=== PATIENT | female | born 1995 | race Caucasian/White ===

== ENCOUNTER 2017-05-22 19:18 | Emergency (ER) | payer SELFPAY ==
[2017-05-22 19:20] VITALS: BP 117/67; PULSE 80; RESP 17; TEMP 36; O2SAT 97; BMI 46.0
--- NOTE | 2017-05-22 21:18 | ED.RN ---
deputy hay was in to see patient after she was done talking with the patient. Patient asked to use the restroom. Patient assisted to restroom and was witnessed walking out the of the ER main doors and down the ramp at this time. Friend in the room a this time. Advised friend that she just left. At this time he received a phone call stating she was leaving. Patient given a few minutes to return. Patient never returned at this time. Patient discharged as LWBS at this time. Dr. White who had signed up for patient care made aware at this time.
--- NOTE | 2017-05-22 21:19 | NURSING ---
PT WAS SEEN LEAVING ER WITHOUT NOTIFYING ANY STAFF PERSONNEL AFTER STATING SHE WAS GOING TO THE BATHROOM. SIGNIFICANT OTHER THAT WAS IN THE ROOM WAS NOTIFIED SHE WAS SEEN LEAVING THE BUILDING. HE THEN ALSO LEFT. NOTIFIED. PT D/C LWBS
== END 2017-05-22 21:16 | disposition left against medical advice (07) ==
LOC: ED 21:31
PROVIDERS: Emergency Provider Emergency Medicine
DX: S09.90XA Unspecified injury of head, initial encounter (principal)
CPT/HCPCS: 99282

== ENCOUNTER → 2018-02-12 10:52 | Outpatient (CLI) | payer MEDICARE, SELFPAY ==
--- NOTE | 2018-02-12 11:32 | EKG12_ITS ---
Test Reason : Blood Pressure : / mmHG Vent. Rate : 083 BPM Atrial Rate : 083 BPM P-R Int : 156 ms QRS Dur : 082 ms QT Int : 370 ms P-R-T Axes : 002 065 031 degrees QTc Int : 434 ms Normal sinus rhythm Nonspecific T wave abnormality Abnormal ECG Confirmed by NICK HYDE ([id number]), editor managing newspaper JOJO MOORE ([id number]) on 02/15/2018 2:17:27 PM Referred By: OUT DOCTOR Confirmed By:NICK HYDE
[2018-02-12 11:51] LABS: Absolute Lymphocyte Count 1.14 X10^3/ul (0.83-4.51); Absolute Neutrophil Count 6.2 X10^3/uL (2.0-7.7); Basophil# 0.01 X10^3/uL; Basophil% 0.1 % (0-1); Eosinophil# 0.17 X10^3/uL; Eosinophils% 2.2 % (0-5); Hematocrit 42.7 % (37-47); Hemoglobin 14.4 g/dl (12.0-15.0); Lymphocyte # 1.14 X10^3/ul (4.0); Lymphocyte % 14.5 % (19-41); Mean Corp Hgb Conc 33.7 g/gl (32-36); Mean Corpuscular Hgb 29.6 pg (27.0-32.0); Mean Corpuscular Volume 87.9 fL (81-99); Mean Platelet Vol. 9.6 fl (6.2-12.0); Monocyte# 0.33 X10^3/uL; Monocyte% 4.2 % (0-10); Neutrophil % 78.9 % (47-70); Platelet Count 448 K/mm3 (150-450); RBC Distribution Width CV 14.4 % (11.6-14.6); RBC Distribution Width SD 45.6 fl (35.1-43.9); Red Blood Count 4.86 M/mm3 (4.2-5.4); White Blood Count 7.9 K/mm3 (4.4-11.0)
[2018-02-12 11:53] LABS: POSITIVE COUNT NO; POSITIVE DIFFERENTIAL NO; POSITIVE MORPHOLOGY NO
[2018-02-12 12:29] LABS: ALB/GLOB Ratio 0.8 RATIO (0.9-2.4); AST(SGOT) 31 U/L (15-37); Alanine Aminotransfer ALT/SGPT 43 U/L (13-56); Albumin, Serum 3.6 g/dL (3.2-5.0); Alkaline Phosphatase 150 U/L (45-117); Anion Gap 8 (5-15); BUN 15 mg/dL (7-18); BUN/Creat Ratio 21.7 RATIO (10-20); Calcium,Total 8.7 mg/dL (8.5-10.1); Chloride 112 mmol/L (98-107); Cholesterol 209 mg/dL (200); Creatinine, Serum 0.69 mg/dL (0.55-1.02); EST Glomerular Filtration Rate 111 mL/min (>60); Est Glom Filt Rate - Afr Amer 134 mL/min (>60); Globulin 4.6 g/dL (2.2-4.2); Glucose 90 mg/dL (74-106); High Density Lipoprotein 32 mg/dL; Potassium 4.1 mmol/L (3.5-5.1); Prolactin 12.8 ng/mL; Protein, Total 8.2 g/dL (6.4-8.2); Sodium Level 139 mmol/L (136-145); T3 Total - Triiodothyronine 1.16 ng/mL (0.6-1.81); Thyroid Stim Hormone (TSH) 0.96 uIU/mL (0.358-3.74); Triglycerides 251 mg/dL; Very Low Density Lipoprotein 50 mg/dL (5-40); Vitamin B12 909 pg/mL (211-911); Vitamin D,25 Hydroxy 16.1 ng/mL (29.95-100.01)
== END ==
DX: Z79.899 Other long term (current) drug therapy (principal)
CPT/HCPCS: 80053; 80061; 82248; 82306; 82607; 84146; 84436; 84443; 84480; 85025; 93005

== ENCOUNTER 2020-12-07 13:05 | Emergency (ER) | payer MEDICARE, MEDICAID, SELFPAY ==
[2020-12-07 13:05] VITALS: BP 137/59; PULSE 110; RESP 20; TEMP 36.3; BMI 52.2
[2020-12-07 14:20] LABS: Absolute Lymphocyte Count 2.58 X10^3/uL (0.83-4.51); Absolute Neutrophil Count 4.3 X10^3/uL (2.0-7.7); Basophil# 0.03 X10^3/uL; Basophil% 0.4 % (0-1); Eosinophil# 0.45 X10^3/uL; Eosinophils% 5.7 % (0-5); Hematocrit 45.5 % (37-47); Hemoglobin 14.8 g/dL (12.0-15.0); Lymphocyte # 2.58 X10^3/ul (0.83-4.51); Lymphocyte % 32.8 % (19-41); Mean Corp Hgb Conc 32.5 g/dL (32-36); Mean Corpuscular Hgb 28.1 pg (27.0-32.0); Mean Corpuscular Volume 86.3 fL (81-99); Mean Platelet Vol. 9.4 fl (6.2-12.0); Monocyte# 0.49 X10^3/uL; Monocyte% 6.2 % (0-10); NRBC Flagged by Analyzer 0 % (0-5); Neutrophil # 4.29 X10^3/uL (2.7-7.7); Neutrophil % 54.6 % (47-70); Platelet Count 327 K/mm3 (150-450); RBC Distribution Width CV 14.4 % (11.6-14.6); RBC Distribution Width SD 45.1 fl (35.1-43.9); Red Blood Count 5.27 M/mm3 (4.2-5.4); White Blood Count 7.9 K/mm3 (4.4-11.0)
[2020-12-07 14:28] LABS: Anion Gap 3 (5-15); BUN 15 mg/dL (7-18); BUN/Creat Ratio 19.7 RATIO (10-20); Calcium,Total 9.1 mg/dL (8.5-10.1); Chloride 108 mmol/L (98-107); Creatinine, Serum 0.76 mg/dL (0.55-1.02); EST Glomerular Filtration Rate 97 mL/min (>60); Est Glom Filt Rate - Afr Amer 118 mL/min (>60); Estimated Creatinine Clearance 92.79 ml/min; Glucose 70 mg/dL (74-106); Potassium 3.9 mmol/L (3.5-5.1); Sodium Level 137 mmol/L (136-145)
[2020-12-07 14:36] LABS: Internal QC Validated? YES +Cl - CLEAR BKGD; Pregnancy, Serum, hCG Quali. NEGATIVE Negative
[2020-12-07] MEDS: 0.9% Normal Saline 1,000 ML 125 ML IV (14:41)
[2020-12-07] MEDS: Mag Hydrox/Al Hydrox/Simeth 30 ML UDC PO (14:41)
[2020-12-07] MEDS: Ondansetron 4 MG/2 ML Vial IV (14:41)
--- NOTE | 2020-12-07 15:10 | EDS_ITS ---
HPI HPI - GI History of Present Illness Chief Complaint: Abd Pain Informant: patient Abdominal Pain/Flank Pain Onset: Hours Context: Sudden Onset Timing: Continuous Quality: Burning Location: RUQ and RLQ Current Severity: Mild Maximum Severity: Moderate Worsened by: Nothing Relieved by: Nothing Nausea/Vomiting/Emesis GI Symptom: Positive for Nausea and Vomiting Onset: Today Quality: Negative for Blood streaks, Coffee ground and Hematemesis Severity: Mild Diarrhea/Melena/Hematochezia GI Symptom: Positive for Melena; Negative for Diarrhea and Hematochezia Onset: Today Associated Symptoms Associated Symptoms: Negative for Dysuria, Frequency and Hematuria LMP: A couple of weeks ago. Narrative Narrative: Patient is a 25-year-old woman who presents with burning right-sided abdominal pain. She is status post cholecystectomy. She has history of peptic ulcer disease. She states she has tarry dark stool. She states she took an aspirin and the pain was alleviated she went to bed. She denies dysuria, tiny quency, urgency or hematuria. She denies history of renal ureterolithiasis. She denies vaginal bleeding. She had a recent miscarriage/ectopic . She denies fever, chills night sweats. She denies ocular, visual auditory symptoms. She denies chest pain. She denies shortness of breath. She denies urinary symptoms. She denies rash. She denies neurologic symptoms. Prior similar symptoms: Yes (Peptic ulcer disease) Recent Illness/Hospitalization: No PFSH PFSH Medical History (Updated 12/07/20 @ 16:[address] Robert Lopez MD) Bipolar disorder Depression Depression GERD (gastroesophageal reflux disease) Peptic ulcer disease Schizo-affective schizophrenia Home Medications topiramate [Topamax] 25 mg PO BID 05/22/17 [History Last Taken Unknown] ondansetron 4 mg PO Q8H PRN PRN #10 tab 12/07/20 [Rx Last Taken Unknown] Allergy/AdvReac Type Severity Reaction Status Date / Time aspirin Allergy Swelling Verified 05/22/17 19:20 Social History (Updated 12/07/20 @ 15:[address] Robert Lopez MD) household members: none Smoking Status: Current every day smoker tobacco type: cigarettes alcohol intake: never substance use type: does not use ROS ROS ED Constitutional Constitutional ED: Denies chills, fever(s) or subjective ENT ENT ED: Denies ear pain, rhinorrhea or sore throat Cardiovascular Cardiovascular: Denies chest pain, orthopnea, palpitations, paroxysmal nocturnal dyspnea or racing heartbeat Respiratory/Chest Respiratory/Chest: Denies cough, dyspnea, dyspnea on exertion, orthopnea or paroxysmal nocturnal dyspnea Gastrointestinal Gastrointestinal: Reports abdominal pain, melena, nausea and vomiting; Denies constipation or diarrhea Genitourinary Genitourinary ED: Denies dysuria, hematuria or urinary frequency Musculoskeletal Musculoskeletal: Denies arthralgias, back pain, myalgias or neck pain Integumentary Denies rash Neurologic Neurologic: Denies headache(s) or weakness Endocrine Endocrinology: Denies polydipsia, polyphagia or polyuria Hematologic/Lymphatic Hematologic/Lymphatic: Denies easy bleeding or easy bruising Allergic/Immunologic Allergic/Immunologic ED: Denies urticaria EXAM Physical Exam Const Vital Signs: 12/07/20 13:05 Temperature 97.3 F L Temperature Source Temporal Pulse Rate 110 H Respiratory Rate 20 H Blood Pressure 137/59 H Blood Pressure Mean 85 Positive well nourished, well developed and obese General Appearance ED: well developed and NAD; Negative for pallor Nutritional Appearance: obese HEENT Reports TM's clear and moist mucous membranes normocephalic and atraumatic Tympanic Membrane ED: Yes TM's clear Eyes PERRL and EOMs intact bilaterally General Eye ED: Negative for pale conjunctiva or scleral icterus Neck no lymphadenopathy, supple and no JVD Resp normal respiratory effort and clear to auscultation bilaterally Cardio regular rate, regular rhythm, S1 normal heart sound, S2 normal heart sound and no murmurs GI non-tender, non-distended and no masses Auscultation: normoactive bowel sounds Palpation: soft Back/Spine no CVA tenderness General Back: Negative for CVA tenderness Cervical Spine: Negative for cervical spine tenderness Thoracic Spine / Upper Back: Negative for thoracic spinal tenderness Lumbar Spine / Lower Back: Negative for lumbar spinal tenderness Extremity full ROM General Extremety ED: Negative for edema or tenderness General Extremity: Negative for edema Neuro CN's II-XII intact bilaterally Sensorium / Orientation: alert, oriented to person, oriented to place and oriented to time Motor Exam: strength 5/5 throughout Psych mental status grossly normal and thought process normal Skin no wounds General Skin Exam: Negative for jaundice or pallor Lesions: no lesions Rashes: no rashes MDM MDM MDM Narrative Medical decision making narrative: Patient with history C is describing burning pain. Zofran was ordered for nausea vomiting. GI cocktail for her discomfort. CBC was obtained assess H&H and indices. Basic metabolic panel to assess BUN/creatinine ratio and renal function. Because of her history of recent m iscarriage serum test was obtained since she is sexually active. Patient was reassessed at 1615. Patient's had no vomiting diarrhea in the department. He improved with treatment. Plan is to discharge to home with symptomatic treatment. Lab Data Attestation: I reviewed the patient's lab results. Lab results narrative: Laboratory results are unremarkable. Patient was informed of results. Labs: Laboratory Results - last 24 hr 12/07/20 12/07/20 12/07/20 14:03 14:03 14:03 WBC 7.9 RBC 5.27 Hgb 14.8 Hct 45.5 MCV 86.3 MCH 28.1 MCHC 32.5 RDW Std Deviation 45.1 H RDW Coeff of Ranjan 14.4 Plt Count 327 MPV 9.4 Immature Gran % (Auto) 0.300 Neut % (Auto) 54.6 Lymph % (Auto) 32.8 [place] % (Auto) 6.2 Eos % (Auto) 5.7 H Baso % (Auto) 0.4 Absolute Neuts (auto) 4.3 Absolute Lymphs (auto) 2.58 Nucleated RBC % 0 Sodium 137 Potassium 3.9 Chloride 108 H Carbon Dioxide 26.0 Anion Gap 3 L BUN 15 Creatinine 0.76 Estim Creat Clear Calc 92.79 Est GFR (MDRD) Af Amer 118 Est GFR (MDRD) Non-Af 97 BUN/Creatinine Ratio 19.7 Glucose 70 L Calcium 9.1 Serum , Qual NEGATIVE Discharge Plan Triage Chief Complaint: Abd Pain ED Provider: Robert Lopez Dx/Rx/DC Orders Clinical Impression: Combined abdominal pain, vomiting, and diarrhea, Mild dehydration Instructions: ED Vomiting and Diarrhea ... Prescriptions: New ondansetron [ondansetron] 4 MG tablet 4 mg PO Q8H PRN PRN (Reason: Nausea) Qty: 10 RF: 0 No Action topiramate [Topamax] 25 MG tablet 25 mg PO BID RF: 0 Primary Care Provider: Maxime Hart Referrals: Maxime Hart [Primary Care Provider] - 3-5 Days if not improving Activity Restrictions/Additional Instructions: 1. Take Imodium for diarrhea Disposition Disposition: Home, Self Care
[2020-12-07 16:30] VITALS: RESP 17
== END 2020-12-07 16:31 | disposition home or self-care (01) ==
PROVIDERS: Emergency Provider Emergency Medicine; PCP Family Medicine
DX: R10.9 Unspecified abdominal pain (principal); R11.2 Nausea with vomiting, unspecified; R19.7 Diarrhea, unspecified; E86.0 Dehydration; F17.210 Nicotine dependence, cigarettes, uncomplicated; E66.9 Obesity, unspecified
CPT/HCPCS: 80048; 82274; 84703; 85025; 96361; 96374; 99284; J7030; J2405